=== PATIENT | female | born 1965 | race Two or more races ===

== ENCOUNTER 2023-01-05 20:27 | Emergency (ER) | payer OTHER ==
[~2023-01-05] VITALS: Ht 165.1 cm; Wt 72.2 kg
[2023-01-05 20:50] VITALS: BP 120/73; PULSE 48; RESP 16; O2SAT 97
[2023-01-05 22:46] LABS: Urine Bacteria NONE SEEN /hpf (None Seen); Urine Blood Negative /uL (Negative); Urine Clarity Clear (Clear); Urine Color Colorless (Yellow); Urine Protein, UAD Negative (Negative); Urine Specific Gravity 1.008 (1.001-1.035); Urine Urobilinogen Normal (Negative); Urine WBC <1 /hpf (0 - 5); Urine pH 7.5 (5.0-8.0)
== END 2023-01-06 02:42 | disposition left against medical advice (07) ==
LOC: ER 20:27
DX: R51.9 Headache, unspecified (principal); R42 Dizziness and giddiness; Z53.21 Procedure and treatment not carried out due to patient leaving prior to being seen by health care provider
CPT/HCPCS: 81001